=== PATIENT | female | born 1960 | race Caucasian/White ===

== ENCOUNTER → 2016-12-11 | Outpatient (CLI) | payer OTHER | END | disposition home or self-care (01) | LOC: CFH 09:53 | PROVIDERS: ATTEND Specialist | DX: Z12.31 Encounter for screening mammogram for malignant neoplasm of breast (principal) | CPT/HCPCS: 77063; G0202 ==

== ENCOUNTER → 2018-02-17 | Outpatient (CLI) | payer OTHER | END | disposition home or self-care (01) | LOC: CFH 10:18 | PROVIDERS: ATTEND Specialist | DX: Z12.31 Encounter for screening mammogram for malignant neoplasm of breast (principal) | CPT/HCPCS: 77063; 77067 ==

== ENCOUNTER → 2019-09-30 | Outpatient (CLI) | payer OTHER | END | disposition home or self-care (01) | LOC: CFH 12:08 | PROVIDERS: ATTEND Specialist | DX: N63.10 Unspecified lump in the right breast, unspecified quadrant (principal); R92.2 Inconclusive mammogram | CPT/HCPCS: 76642; 77065; G0279 ==

== ENCOUNTER 2020-12-25 12:14 | Outpatient (CLI) | payer OTHER ==
[~2020-12-25 12:14] MED LIST: REGADENOSON 0.4 MG/5 ML SYRINGE ONE
== END 2020-12-26 23:59 | disposition home or self-care (01) ==
LOC: CFH 12:14
PROVIDERS: ATTEND Family Medicine
DX: I50.810 Right heart failure, unspecified (principal); R06.9 Unspecified abnormalities of breathing; E66.9 Obesity, unspecified; Z86.16 Personal history of COVID-19
CPT/HCPCS: 78452; 93017; A9502; J2785

== ENCOUNTER → 2021-02-23 | Outpatient (CLI) | payer OTHER | END | disposition home or self-care (01) | LOC: CFH 12:27 | PROVIDERS: ATTEND Internal Medicine | DX: I77.810 Thoracic aortic ectasia (principal); I26.09 Other pulmonary embolism with acute cor pulmonale; J98.4 Other disorders of lung; M51.35 Other intervertebral disc degeneration, thoracolumbar region | CPT/HCPCS: 71250 ==